=== PATIENT | male | born 1930 | race Caucasian/White ===

== ENCOUNTER → 2016-12-21 | Outpatient (CLI) | payer OTHER | LOC: BHFA 15:00 | PROVIDERS: ATTEND Internal Medicine Cardiovascular Disease | DX: I42.9 Cardiomyopathy, unspecified (principal); E78.5 Hyperlipidemia, unspecified; I10 Essential (primary) hypertension; R55 Syncope and collapse ==

== ENCOUNTER → 2016-12-29 | Outpatient (CLI) | payer OTHER | LOC: BHFA 09:00 | PROVIDERS: ATTEND Internal Medicine Cardiovascular Disease | DX: I25.10 Atherosclerotic heart disease of native coronary artery without angina pectoris (principal) | CPT/HCPCS: 78452; 93017; A9500 ==

== ENCOUNTER → 2016-12-31 | Outpatient (CLI) | payer OTHER | LOC: BHFA 14:00 | PROVIDERS: ATTEND Internal Medicine Cardiovascular Disease | DX: R55 Syncope and collapse (principal); R94.31 Abnormal electrocardiogram [ECG] [EKG] ==

== ENCOUNTER → 2017-02-03 | Outpatient (CLI) | payer OTHER | LOC: BHFA 13:00 | PROVIDERS: ATTEND Internal Medicine Cardiovascular Disease | DX: I47.1 Supraventricular tachycardia (principal); I25.10 Atherosclerotic heart disease of native coronary artery without angina pectoris; I25.5 Ischemic cardiomyopathy ==

== ENCOUNTER → 2017-02-10 | Outpatient (CLI) | payer OTHER | LOC: BHFA 08:00 | PROVIDERS: ATTEND Internal Medicine Cardiovascular Disease | DX: I48.91 Unspecified atrial fibrillation (principal); I42.9 Cardiomyopathy, unspecified | CPT/HCPCS: 78472; A9560 ==

== ENCOUNTER 2017-02-15 06:56 | Observation (INO) | payer OTHER ==
[2017-02-15] MEDS ORDERED: MIDAZOLAM 2 MG/2 ML VIAL IVP ONE (07:03)
[2017-02-15] MEDS ORDERED: NS 1,000 ML IV ONE (07:03)
--- NOTE | 2017-02-15 07:27 | CPEKG ---
Heart Rate: 57 RR Interval: 1053 P-R Interval: 176 QRSD Interval: 90 QT Interval: 428 QTC Interval: 417 P [place]: 73 QRS [place]: -19 T Wave [place]: 54 EKG Severity - ABNORMAL ECG - EKG Impression: SINUS RHYTHM EKG Impression: BORDERLINE LEFT AXIS DEVIATION EKG Impression: ANTERIOR INFARCT, AGE INDETERMINATE Electronically Signed By: Emil Tate 15-Feb-2017 08:41:22
[2017-02-15] MEDS ORDERED: LIDOCAINE 1% 30 ML SDV ONE (07:32)
[2017-02-15] MEDS ORDERED: HEPARIN 10,000 UNIT/10 ML MDV ONE (07:32)
[2017-02-15] MEDS ORDERED: ISOPROTERENOL HCL 0.2 MG/ML 5ML AMP ONE (07:32)
[2017-02-15] MEDS ORDERED: BUPIVACAINE 0.5% 30 ML SDV ONE (07:32)
[2017-02-15 07:41] LABS: % IMMATURE GRANULYOCYTES 0.2 % (0.0-1.1); ABSOLUTE IMMATURE GRANULOCYTES 0.01 10^3/uL (0.00-0.10); ADD DIFF? NO; ADD MORPH? NO; ADD SCAN? NO; ATYPICAL LYMPHOCYTE FLAG 20 (0-99); FRAGMENT RBC FLAG 0 (0-99); HEMATOCRIT 41.7 % (40.0-51.0); HEMOGLOBIN 14.1 g/dL (13.7-17.5); LEFT SHIFT FLG 0 (0-99); LIPEMIA HEMOLYSIS FLAG 90 (0-99); MEAN CELL HEMOGLOBIN 32.1 pg (27.9-34.1); MEAN CELL HEMOGLOBIN CONCENTR. 33.8 g/dL (32.4-36.7); MEAN PLATELET VOLUME 9.3 fL (8.7-11.7); PLATELET CLUMPS FLAG 20 (0-99); PLATELET COUNT 240 10^3/uL (150-400); RED BLOOD CELL COUNT 4.39 10^6/uL (4.40-6.38); RED CELL DISTRIBUTION WIDTH 12.6 % (11.5-15.2)
[2017-02-15 07:53] LABS: INR 1.12 (0.83-1.16); PROTIME(PATIENT) 14.3 SEC (12.0-15.0)
[2017-02-15 07:54] LABS: APTT 27.7 SEC (23.0-38.0)
[2017-02-15 07:58] LABS: ANION GAP 9 mEq/L (8-16); CALCIUM 9.2 mg/dL (8.5-10.4); CARBON DIOXIDE 25 mEq/l (22-31); CHLORIDE 108 mEq/L (97-110); CREATININE 0.8 mg/dL (0.7-1.3); GLOMERULAR FILTRATION RATE > 60; GLUCOSE 98 mg/dL (70-100); MAGNESIUM 2.2 mg/dL (1.6-2.3); POTASSIUM 4.3 mEq/L (3.5-5.2); SODIUM 142 mEq/L (134-144)
[2017-02-15] MEDS ORDERED: PROPOFOL 200 MG/20 ML VIAL ONE (08:34)
[2017-02-15] MEDS ORDERED: fentaNYL 100 MCG/2 ML INJ ONE ×2 (08:34→10:46)
[2017-02-15] MEDS ORDERED: ROCURONIUM 100 MG/10 ML VIAL ONE (08:34)
[2017-02-15] MEDS ORDERED: SUGAMMADEX SODIUM 200 MG/2 ML VIAL IVP ONE (11:11)
[2017-02-15] MEDS ORDERED: ONDANSETRON 4 MG/2 ML VIAL ONE (11:11)
[2017-02-15] MEDS ORDERED: ONDANSETRON 4 MG/2 ML VIAL IVP PRN (11:29)
[2017-02-15] MEDS ORDERED: ACETAMINOPHEN 325 MG TAB PO PRN (11:29)
[2017-02-15] MEDS ORDERED: OXYCODONE/APAP 5/325 TAB PO PRN (11:29)
--- NOTE | 2017-02-15 12:08 | CPEKG ---
Heart Rate: 61 RR Interval: 984 P-R Interval: 172 QRSD Interval: 86 QT Interval: 432 QTC Interval: 435 P [place]: 78 QRS [place]: -4 T Wave [place]: 65 EKG Severity - ABNORMAL ECG - EKG Impression: SINUS RHYTHM EKG Impression: ANTERIOR INFARCT, AGE INDETERMINATE Electronically Signed By: Emil Tate 16-Feb-2017 06:38:03
[2017-02-15 12:54] LABS: CALCIUM 8.2 mg/dL (8.5-10.4); CARBON DIOXIDE 25 mEq/l (22-31); CHLORIDE 108 mEq/L (97-110); CREATININE 0.9 mg/dL (0.7-1.3); GLOMERULAR FILTRATION RATE > 60; GLUCOSE 103 mg/dL (70-100); SODIUM 140 mEq/L (134-144)
[2017-02-15 13:16] LABS: ANION GAP 7 mEq/L (8-16); POTASSIUM 4.6 mEq/L (3.5-5.2)
[2017-02-15] MEDS: CARVEDILOL 3.125 MG TAB PO SCH (18:28)
[2017-02-15] MEDS ORDERED: ATORVASTATIN CALCIUM 40 MG TAB PO SCH (21:00)
[2017-02-15] MEDS ORDERED: BETAMETHASONE DIPROPIONATE TP SCH (21:00)
[2017-02-15] MEDS: TICAGRELOR 90 MG TAB PO SCH (21:16)
[2017-02-15] MEDS: BETAMETHASONE AUGMENTED 0.05% 15GM CREAM TP SCH (21:24)
[2017-02-16 04:09] LABS: % IMMATURE GRANULYOCYTES 0.3 % (0.0-1.1); ABSOLUTE IMMATURE GRANULOCYTES 0.02 10^3/uL (0.00-0.10); ADD DIFF? NO; ADD MORPH? NO; ADD SCAN? NO; ATYPICAL LYMPHOCYTE FLAG 0 (0-99); FRAGMENT RBC FLAG 0 (0-99); HEMATOCRIT 36.6 % (40.0-51.0); HEMOGLOBIN 12.3 g/dL (13.7-17.5); LEFT SHIFT FLG 10 (0-99); LIPEMIA HEMOLYSIS FLAG 80 (0-99); MEAN CELL HEMOGLOBIN 32.5 pg (27.9-34.1); MEAN CELL HEMOGLOBIN CONCENTR. 33.6 g/dL (32.4-36.7); MEAN CELL VOLUME 96.6 fL (81.5-99.8); MEAN PLATELET VOLUME 9.6 fL (8.7-11.7); PLATELET CLUMPS FLAG 0 (0-99); PLATELET COUNT 189 10^3/uL (150-400); RED BLOOD CELL COUNT 3.79 10^6/uL (4.40-6.38); RED CELL DISTRIBUTION WIDTH 12.7 % (11.5-15.2)
[2017-02-16 04:14] LABS: INR 1.2 (0.83-1.16); PROTIME(PATIENT) 15.2 SEC (12.0-15.0)
[2017-02-16 04:29] LABS: ANION GAP 8 mEq/L (8-16); CALCIUM 8.6 mg/dL (8.5-10.4); CARBON DIOXIDE 23 mEq/l (22-31); CHLORIDE 107 mEq/L (97-110); CREATININE 0.9 mg/dL (0.7-1.3); GLOMERULAR FILTRATION RATE > 60; GLUCOSE 90 mg/dL (70-100); POTASSIUM 4.1 mEq/L (3.5-5.2); SODIUM 138 mEq/L (134-144)
[2017-02-16 04:39] LABS: CREATINE KINASE-MB FRACTION 1.98 ng/mL (0-3.19); TROPONIN I 0.057 ng/mL (0-0.034)
[2017-02-16 07:09] VITALS: BP 122/64; PULSE 52; RESP 15; TEMP 98.2; O2SAT 94
[2017-02-16] MEDS ORDERED: ASPIRIN EC 81 MG TAB PO SCH (09:00)
[2017-02-16] MEDS ORDERED: MULTIVITAMINS 1 EACH TAB PO SCH (09:00)
[2017-02-16] MEDS ORDERED: CHONDROITIN PO SCH (09:00)
[2017-02-16] MEDS ORDERED: CHOLECALCIFEROL VIT D3 1,000 UNITS TAB PO SCH (09:00)
[2017-02-16] MEDS ORDERED: GLUCOSAMINE PO SCH (09:00)
--- NOTE | 2017-02-16 09:03 | CPEKG ---
Heart Rate: 60 RR Interval: 1000 P-R Interval: 180 QRSD Interval: 84 QT Interval: 420 QTC Interval: 420 P [place]: 83 QRS [place]: -28 T Wave [place]: 55 EKG Severity - ABNORMAL ECG - EKG Impression: SINUS RHYTHM EKG Impression: BORDERLINE LEFT AXIS DEVIATION EKG Impression: ANTERIOR INFARCT, AGE INDETERMINATE Electronically Signed By: Maxime Arias 16-Feb-2017 11:18:36
[2017-02-16] MEDS: CARVEDILOL 3.125 MG TAB PO SCH (09:05)
[2017-02-16] MEDS: TICAGRELOR 90 MG TAB PO SCH (09:05)
--- NOTE | 2017-02-16 10:22 | ECHO ---
[id number] + + [address] : : [place] [address] : : [phone] + + Adult Echocardiographic Report + ------+ :Name: KISHAN VINSON SStudy Date: 02/16/2017 08:05 AM BP: 122/64 mmHg : : Hospital Admission Number: [id number] Marko n: 204: :: 1930 Gender: Male Height: 67 in : :Age: 87 yrs Race: WH Weight: 138 lb : :Reason For Study: F/U EP; eval LVFX : : BSA: 1.7 meters 2 : :History: [place]; arrhthymia : + ------+ MMode/2D Measurements \T\ Calculations IVSd: 0.73 cm RVDd: 3.5 cm FS: 30.5 % Ao root diam: LVPWd: 0.72 cm LVIDd: 4.4 cm EDV(Teich): 3.2 cm LVIDs: 3.1 cm 88.7 ml ESV(Teich): 37.2 ml EF(Teich): 58.1 % LVLd ap4: 9.0 cm SV(MOD-sp4): EDV(MOD-sp4): 58.0 ml 129.0 ml LVLs ap4: 7.9 cm ESV(MOD-sp4): 71.0 ml EF(MOD-sp4): 45.0 % Normal Measurement Values: + + :LVIDd (3.5-5.7cm) IVSd (0.6-1.1cm) LVPWd (0.6-1.1cm) Aortic Root (2.0-3.7cm)Left Atrium (1.5-4.0cm): :LV Vol(d) (76-115ml) LV Vol(s) (29-48ml) Ejec Fraction (50-65%)PV Jhonatan (0.6- 1.2m/s) TV Jhonatan (0.4-1.0m/s) : :MV E Jhonatan (0.8-1.0m/s)MV A Jhonatan (0.3-1.0m/s)LVOT Jhonatan (0.7-1.2m/s) Asc Ao Jhonatan ( 0.9-1.8m/s) : + + Doppler Measurements \T\ Calculations MV E max jhonatan: Ao V2 max: LV V1 max: PA V2 max: 78.5 cm/sec 123.8 cm/sec 99.9 cm/sec 106.9 cm/sec MV A max jhonatan: Ao max PG: LV V1 max PG: PA max P.1 cm/sec 6.1 mmHg 4.0 mmHg 4.6 mmHg MV E/A: 1.1 MV dec time: 0.21 sec TR max jhonatan: 237.6 cm/sec TR max P.6 mmHg RAP systole: 5.0 mmHg RVSP(TR): 27.6 mmHg Left Ventricle The left ventricle is normal in size. There is normal left ventricular wall thickness. Left ventricular systolic function is mildly reduced. Ejection Fraction = 40%. Mid to distal anteroseptal, apical septal and apical hypokinesis. Right Ventricle The right ventricle is normal in size and function. Atria The left atrial size is normal. Right atrial size is normal. There was no clot seen in the IVC. 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 Small PFO vs ASD noted with color flow with left to right flow. Mitral Valve The mitral valve is normal in structure and function. There is no mitral valve stenosis. There is mild mitral regurgitation. Tricuspid Valve The tricuspid valve is normal in structure and function. There is no tricuspid stenosis. There is mild tricuspid regurgitation. Right ventricular systolic pressure is 28mmHg. Aortic Valve The aortic valve is trileaflet. There is no aortic stenosis. Trace aortic regurgitation. Pulmonic Valve The pulmonic valve is normal in structure and function. There is no pulmonic valvular regurgitation. Great Vessels The aortic root is normal size. Pericardium/Pleural There is no pericardial effusion. Conclusion A two-dimensional transthoracic echocardiogram with M-mode and Doppler was performed. Left ventricular systolic function is mildly reduced. Ejection Fraction = 40%. Mid to distal anteroseptal, apical septal and apical hypokinesis. 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 Small PFO vs ASD noted with color flow with left to right flow. There was no clot seen in the IVC. There is mild mitral regurgitation. There is mild tricuspid regurgitation. Right ventricular systolic pressure is 28mmHg. Trace aortic regurgitation. Final Reading Physician: Dr Dina Wetzel electronically signed on 02/16/2017 10:21 AM Ordering Physician: Maxime Arias Performed By: Maryjane Bloom
[2017-02-16] MEDS: BETAMETHASONE AUGMENTED 0.05% 15GM CREAM TP SCH (10:25)
--- NOTE | 2017-02-16 11:41 | PDCARPN ---
Cardiology Progress Note Assessment/Plan: Assessment: 87-year-old male with coronary artery disease, status post prior anterior myocardial infarction. He had 2 episodes of presyncope. Yesterday we performed ablation of her right atrial tachycardia, also placed LINQ monitor. No ventricular arrhythmia was inducible at EP study. Have personally reviewed his echocardiogram, I have also had Dr. Dina Wetzel formally read her echocardiogram. This shows left ventricular ejection fraction of 40%. At this time, with no inducible ventricular arrhythmia, left ventricular ejection fraction of 40-45%, he does not meet criteria for ICD implantation. This was discussed with him and his at length. We discussed that his risk of sudden cardiac is higher than the average individual, however given that his ejection fraction is more than 40% and he does not have inducible ventricular arrhythmia, he does not meet criteria for ICD implantation. He is okay to drive from my standpoint. He can continue his active lifestyle including exercising and hiking though he should not participate in competitive sports. He should continue on medical therapy with beta-blockers. As such, the patient tells me that he is not interested in having an ICD there is strong evidence to prove that it would help him. Spent 30 minutes discussing the above issues with the patient. 02/16/17 11:37 Objective: Vital Signs (8 Hrs) Temp Pulse Resp BP Pulse Ox 02/16/17 07:08 36.8 C 52 L 15 122/64 H 94 02/16/17 03:53 36.3 C 62 17 110/56 L 92 Intake/Output (24 Hrs) 02/14/17 02/15/17 02/16/17 11:59 11:59 11:59 Intake Total 1850 Output Total 1425 Balance 425 Intake: Oral (ml) 1050 IV Intake (ml) 800 Output: Urine (ml) 1425 Urinal 1425 Other: Weight 63 kg Intake Quantity Yes Sufficient Number of Voids Urinal 1 Result Diagrams: 02/16/17 03:03 02/16/17 03:03 Cardiac Labs: Cardiac Lab Results (72 Hrs) 02/16/17 03:03 CK-MB (CK-2) Fraction 1.98 Troponin I 0.057 H ICD10 Worksheet Patient Problems: Problems Problem Status Onset Atrial tachycardia Acute Chronic Disease Mgmt/Transitional Care Acute
--- NOTE | 2017-02-16 11:47 | EPPROC ---
Electrophysiology Procedure Note: ELECTROPHYSIOLOGIC STUDY AND CATHETER MEDIATED ABLATION OF FOCAL RIGHT ATRIAL TACHYCARDIA PROCEDURES PERFORMED: 1. EP evaluation with RA/RV/LA pace/record, with arrhythmia induction 2. EP evaluation with RA/RV pace record, insert/reposition catheter, with arrhythmia induction 3. Intracardiac catheter ablation, SVT arrhythmogenic focus 4. 24095 3D mapping 5. Fluoroscopy 6. LINQ monitor implantation INDICATION: Nonsustained atrial tachycardia, near syncope, ischemic cardiomyopathy with left ventricular ejection fraction of 40-45% Catheters and anesthesia: The patient arrived in the Electrophysiology Laboratory in the fasting state. The right clavicular region, right groin, and left groin area were prepped and draped in the usual sterile manner. Anesthesiologist administered general anesthesia. Appropriate non-invasive blood pressure, pulse oximetry and end- tidal CO2 monitoring was established. All catheters were placed percutaneously using the modified Seldinger technique , and advanced into position under fluoroscopic guidance. One #7 [place] deflectable octapolar electrode catheter was advanced to the His-bundle position via the left femoral vein and then placed into the coronary sinus. A decapolar MEM (multielectrode mapping) catheter was placed via the right femoral vein along the anish terminalis and used to map the right atrium and coronary sinus. Programmed stimulation was performed from the right atrium, left atrium ( coronary sinus) and right ventricle. Parahisian pacing demonstrated all retrograde conduction over the AV node Heparin was administered to keep ACT > 200 seconds. Programmed stimulation of right atrium during infusion of isoproterenol 1 mcg/ min induced an atrial tachycardia. AV dissociation was induced with ventricular overdrive pacing confirming atrial tachycardia. Atrial tachycardia cycle length was 430-470 milliseconds. A #7 [place] mapping catheter was introduced into the right atrium and used for mapping AT . SL1 sheath was used. A 3D mapping system (Streemio) was used. A detailed 3D map of the right atrium and coronary sinus showed earliest atrial activation along the cavo tricuspid isthmus. Earliest atrial activation began 25 ms before the onset of the P wave with a negative deflection in the unipolar electrogram. 3D mapping clearly showed a focal pattern of activation, EKG was consistent with this as well, atrial flutter was ruled out. RF applications were delivered to this site. This accelerated and then terminated the tachycardia. Programmed stimulation in the baseline state and during infusion of isoproterenol 1, 2 mcg/min post ablation was performed. No tachycardia could be induced. Programmed ventricular stimulation using standard protocol with and without isoproterenol did not induce any ventricular arrhythmias. Following this the LINQ monitor was placed in the left parasternal area, this is programmed to detect arrhythmias less than 40 beats per minute, more than 150 beats per minute and ventricular pauses more than 3 seconds. SN [id number] The catheters were removed. The patient was transferred to the cardiovascular holding area in stable condition. Vascular access sheaths were removed in the holding area. There were no apparent complications. CONCLUSIONS: 1. Focal atrial tachycardia originating in the cavotricuspid isthmus. 2. Successful ablation of focal atrial tachycardia. 3. No inducible ventricular arrhythmias. 4. Implantation of LINQ monitor. 5. No apparent complications. Patient Problems: Problems Problem Status Onset Atrial tachycardia Acute Chronic Disease Mgmt/Transitional Care Acute
--- NOTE | 2017-02-16 20:47 | GDS ---
[f rep st] DISCHARGE SUMMARY ADMITTING DIAGNOSES: 1. Near syncope. 2. Ischemic cardiomyopathy. 3. Supraventricular tachycardia. 4. Coronary artery disease. DISCHARGE DIAGNOSES: 1. Near syncope. 2. Ischemic cardiomyopathy. 3. Supraventricular tachycardia. 4. Coronary artery disease. 5. Atrial tachycardia ablation, status post LINQ implantation. BRIEF HISTORY: This is an 87-year-old man with history of anterior AL 2 years ago with PCI. He was referred to Dr. Arias by Dr. Hernadez for evaluation of near syncope. His EF had been noted as variabl e with different testing done. He did have an echocardiogram done this hospitalization which was re viewed by Dr. Arias and Dr. Wetzel with an EF of 40%. HOSPITAL COURSE: He had an EP study done by Dr. Arias with a right atrial tach ablation. He had no i nducible ventricular tachycardia. A LINQ certified pesticide applicator was implanted. Today, storing and transmi tting symptoms with his LINQ monitor and transmitter were reviewed with the patient and his . PHYSICAL EXAMINATION: VITAL SIGNS: Blood pressure 122/64, heart rate 83, respirations 15, temperat ure 36.8, O2 saturation on room air is 94%. CARDIAC: Regular rate and rhythm without murmur, rub, or gallop. LUNGS: Clear to auscultation. EXTREMITIES: He has no lower extremity edema. There ar e +2 pedal pulses bilaterally. Groin site on the right is without bleeding, swelling, or bruit. Th e bandage over his LINQ monitor has some old blood on it. This will be changed sterilely by the [facility]. Review of telemetry demonstrated no arrhythmias. EKG demonstrated sinus rhythm with rate of 60 beat s per minute, and anterior Q waves noted previously. LABORATORY VALUES: WBC 7.07, hemoglobin 12.3, hematocrit 36.6, platelets 189. Sodium 138, potassiu m 4.1, chloride 107, bicarb 23, BUN 21, creatinine is 0.9, glucose 90. Troponin is 0.057; this elev ation is to be expected post-ablation. DISCHARGE MEDICATIONS: See discharge medication reconciliation. FOLLOWUP: He has a followup with Dr. Arias on February 24 at 2 o'clock. ACTIVITIES: Post EP study restrictions were reviewed with the patient and his and are on disch arge instructions. /[id number]/MODL
== END 2017-02-16 11:12 | disposition home or self-care (01) ==
LOC: FCATH 06:56 → F2W 11:29
PROVIDERS: ADMIT Internal Medicine Cardiovascular Disease; ATTEND Internal Medicine Cardiovascular Disease
PROC: 0JH60PZ Insertion of Cardiac Rhythm Related Device into Chest Subcutaneous Tissue and Fascia, Open Approach (ICD-10-PCS; principal; 2017-02-15)
PROC: 02563ZZ Destruction of Right Atrium, Percutaneous Approach (ICD-10-PCS; principal; 2017-02-15)
DX: I47.1 Supraventricular tachycardia (principal); I25.5 Ischemic cardiomyopathy; I25.10 Atherosclerotic heart disease of native coronary artery without angina pectoris; I25.2 Old myocardial infarction
CPT/HCPCS: 33282; 93005; 93306; 93600; 93621; 93623; 93653; C1731; C1732; C1764; C1893; J1644; J2405; J2704; J3010

== ENCOUNTER → 2017-02-24 | Outpatient (CLI) | payer OTHER | LOC: BHFA 14:00 | PROVIDERS: ATTEND Internal Medicine Cardiovascular Disease | DX: I47.1 Supraventricular tachycardia (principal) ==

== ENCOUNTER → 2017-06-17 | Outpatient (CLI) | payer OTHER | LOC: FIMAGING 17:08 | PROVIDERS: ATTEND Internal Medicine Cardiovascular Disease | DX: I48.0 Paroxysmal atrial fibrillation (principal) ==

== ENCOUNTER → 2017-08-24 | Outpatient (CLI) | payer OTHER | LOC: BHFA 09:30 | PROVIDERS: ATTEND Internal Medicine Cardiovascular Disease | DX: Z79.899 Other long term (current) drug therapy (principal) ==

== ENCOUNTER → 2017-09-01 | Outpatient (CLI) | payer OTHER | LOC: FIMAGING 13:56 | PROVIDERS: ATTEND Internal Medicine | DX: R42 Dizziness and giddiness (principal); I65.23 Occlusion and stenosis of bilateral carotid arteries; I67.2 Cerebral atherosclerosis ==

== ENCOUNTER → 2018-07-06 | Outpatient (CLI) | payer OTHER | LOC: BHCLAF 14:15 | PROVIDERS: ATTEND Internal Medicine Cardiovascular Disease | DX: I42.9 Cardiomyopathy, unspecified (principal); R94.39 Abnormal result of other cardiovascular function study | CPT/HCPCS: 93005-PO ==

== ENCOUNTER → 2018-07-08 | Outpatient (CLI) | payer OTHER | LOC: FIMAGING 08:02 | PROVIDERS: ATTEND Internal Medicine Cardiovascular Disease | DX: I48.91 Unspecified atrial fibrillation (principal); Z79.899 Other long term (current) drug therapy ==

== ENCOUNTER → 2018-08-11 | Outpatient (CLI) | payer OTHER | LOC: BHFA 08:30 | PROVIDERS: ATTEND Internal Medicine Cardiovascular Disease | DX: I25.10 Atherosclerotic heart disease of native coronary artery without angina pectoris (principal) ==